=== PATIENT | male | born 1940 | race Caucasian/White ===

== ENCOUNTER 2019-08-25 09:23 | Emergency (ER) | payer BC ==
[~2019-08-25] VITALS: Ht 175.3 cm; Wt 85.5 kg
[~2019-08-25 09:23] MED LIST: ASPI-496 PO; DUTA0.5C PO
--- NOTE | 2019-08-25 10:17 | NUR ---
PT STATES THAT HE MONITORS HIS BP AND HR ONCE A DAY AND HE NOTICED HIS HR WOULD FLUCTUATE TO HIGHEST 100 BPM. DENIES CP, SOB, OR DIZZINESS. PT HAD HIS AORTA REPLACED. PT PLACED ON [facility] [employer]. WILL CONTINUE TO MONITOR.
[2019-08-25 11:21] LABS: BASOPHILS # (AUTO) 0.02 x10^3/uL (0-0.1); BASOPHILS % (AUTO) 0 % (0-1); EOSINOPHILS # (AUTO) 0.09 x10^3/uL (0-0.4); EOSINOPHILS % (AUTO) 1 % (1-7); LYMPHOCYTES # (AUTO) 0.78 x10^3/uL (1-3.4); LYMPHOCYTES % (AUTO) 8 % (22-44); MD NO; MEAN CORPUSCULAR HGB CONC 34.2 g/dL (33.2-36.2); MEAN CORPUSCULAR VOLUME 99.3 fL (81-97); MEAN PLATELET VOLUME 9.1 fL (7.4-10.4); MONOCYTES # (AUTO) 1.32 x10^3/uL (0.2-0.8); MONOCYTES % (AUTO) 14 % (2-9); NEUTROPHILS # (AUTO) 7.46 x10^3/uL (1.8-6.8); NEUTROPHILS % (AUTO) 77 % (42-75); PLATELET COUNT 174 x10^3/uL (130-400); RED BLOOD COUNT 4.41 x10^6/uL (4.38-5.82); RED CELL DISTRIBUTION WIDTH 13.1 % (9.4-14.8)
[2019-08-25 11:35] LABS: ALBUMIN 3.8 g/dL (3.4-5.0); ANION GAP 3 mmol/L (5-15); CALCIUM 8.8 mg/dL (8.5-10.1); CHLORIDE 110 mmol/L (98-107)
[2019-08-25 11:40] LABS: CREATININE 1.58 mg/dL (0.7-1.3); TROPONIN I < 0.015 ng/mL (0.000-0.045)
--- NOTE | 2019-08-25 12:32 | NUR ---
INFORMED MD THAT HR IS 100-101 WHILE PT EATING. PT DENIES CP OR SOB. VS STABLE. WILL CONTINUE TO MONITOR.
[2019-08-25 13:32] VITALS: BP 115/67
== END 2019-08-25 13:33 | disposition home or self-care (01) ==
LOC: ED 10:16
DX: R00.2 Palpitations (principal); R06.02 Shortness of breath; E86.0 Dehydration; R94.31 Abnormal electrocardiogram [ECG] [EKG]
CPT/HCPCS: 36415; 71045; 80048; 82040; 84484; 85025; 93005; 99285